=== PATIENT | female | born 2000 | race Hispanic/Latino ===

== ENCOUNTER 2022-07-18 07:15 | Emergency (ER) | payer MEDICAID ==
[~2022-07-18] VITALS: Ht 149.9 cm; Wt 68.9 kg
[2022-07-18 07:20] VITALS: BP 121/71
[2022-07-18] MEDS ORDERED: IBUPROFEN 600 MG TABLET PO ONE (08:30)
[2022-07-18] MEDS ORDERED: IBUP-2070 PO (08:35)
== END 2022-07-18 08:47 | disposition home or self-care (01) ==
LOC: EDH 07:15
DX: S60.221A Contusion of right hand, initial encounter (principal); W22.8XXA Striking against or struck by other objects, initial encounter; Y93.89 Activity, other specified; Y92.89 Other specified places as the place of occurrence of the external cause; Y99.8 Other external cause status
CPT/HCPCS: 73130

== ENCOUNTER 2022-09-20 18:44 | Emergency (ER) | payer MEDICAID ==
[~2022-09-20] VITALS: Ht 149.9 cm; Wt 71.2 kg
[~2022-09-20 18:44] MED LIST: IBUP-2070 PO
[2022-09-20 18:48] VITALS: BP 145/69
[2022-09-20 19:59] LABS: BASOPHILS % (AUTO) 0.3 % (0.0-5.0); EOSINOPHILS % (AUTO) 0.7 % (0.0-8.0); HEMATOCRIT 38.4 % (36-48); LYMPHOCYTES % (AUTO) 20.5 % (21.0-51.0); MEAN CORPUSCULAR HEMOGLOBIN 31.2 pg (27.0-33.0); MEAN CORPUSCULAR HGB CONC 34.6 g/dL (32.0-36.0); MEAN CORPUSCULAR VOLUME 90.1 fL (80-100); MONOCYTES % (AUTO) 5.6 % (3.0-13.0); NEUTROPHILS % (AUTO) 72.6 % (40.0-77.0); PLATELET COUNT (AUTO) 339 K/uL (130-400); RED BLOOD CELL COUNT(AUTO) 4.26 MIL/uL (4.00-5.50); RED CELL DISTRIBUTION WIDTH 11.8 % (11.0-15.5); WHITE BLOOD COUNT (AUTO) 12.2 K/uL (4.8-10.8)
[2022-09-20 20:09] LABS: CREATININE 0.7 mg/dL (0.5-1.5); POTASSIUM 3.7 mmol/L (3.5-5.1)
[2022-09-20 20:36] LABS: ALBUMIN 3.7 g/dL (3.5-5.0); TOTAL PROTEIN, SERUM 7.8 g/dL (6.0-8.3)
== END 2022-09-20 21:44 | disposition home or self-care (01) ==
LOC: EDH 18:44
DX: O03.9 Complete or unspecified spontaneous abortion without complication (principal); F17.200 Nicotine dependence, unspecified, uncomplicated; Z79.1 Long term (current) use of non-steroidal anti-inflammatories (NSAID)
CPT/HCPCS: 36415; 76801; 80053; 84702; 85025; 86900; 86901